=== PATIENT | male | born 1950 | race Hispanic/Latino ===

== ENCOUNTER 2016-11-19 11:50 | Day surgery (SDC) | payer MEDICARE ==
[2016-11-19 12:10] VITALS: BMI 38.0
[2016-11-19] MEDS ORDERED: Lidocaine 2% Inj (20ml) ONE (14:05)
[2016-11-19] MEDS ORDERED: ceFAZolin IV 1 gm in Dextrose 1 GM/50 ML BAG IVPB ONE (14:05)
--- NOTE | 2016-11-19 15:18 | CP.PCM.PN ---
<Fozia Reyes - Last Filed: 11/19/16 15:14> Subjective - Date & Time of Evaluation Date of Evaluation: 11/19/16 Time of Evaluation: 15:14 - Subjective Subjective: PGY-[address] Win Procedure: Implantable Loop Recorder (ILR) Insertion Procedure, goal, risks and benefit discussed with pt. Pt was placed on director of cardiac cath lab. Sterile prep with chlordexadine. Local anesthesia with 2% lidocaine. Small insicion 1.5 inches made to left parasternal rib 3 Pocket is created and injected device Steril strips applied with occulusive pressure dressing Device captured and started recording. Pt tolerated procedure well. Objective - Vital Signs/Intake and Output Vital Signs (last 24 hours): Temp Pulse Resp BP Pulse Ox 98.4 F 78 20 149/72 97 11/19/16 12:27 11/19/16 12:27 11/19/16 12:27 11/19/16 12:27 11/19/16 12:27 <Betsy Win - Last Filed: 11/20/16 08:57> Objective - Vital Signs/Intake and Output Vital Signs (last 24 hours): Temp Pulse Resp BP Pulse Ox 97.3 F L 80 18 135/60 98 11/19/16 15:15 11/19/16 15:15 11/19/16 15:15 11/19/16 15:15 11/19/16 15:15 Attending/Attestation - Attestation I have personally seen and examined this patient.: Yes I have fully participated in the care of the patient.: Yes I have reviewed all pertinent clinical information, including history, physical exam and plan: Yes Notes (Text): 11/20/16 08:55 successful implantation of LOOP recorder follow up with Dr Persaud as outpt
[2016-11-19 15:57] VITALS: BP 135/60; PULSE 80; RESP 18; TEMP 97.3; O2SAT 98
--- NOTE | 2016-11-20 10:46 | OP ---
PROCEDURE DATE: 11/19/2016 PROCEDURE: Tilt table test. INDICATION: Syncope. The patient was brought to the cardiac optical laboratory technician and tilted for 25 minutes, head up tilt. The patient had no hemodynamic events. Only upon laying him flat after 25 minutes, his blood pressure did decre ase to 84/50. He was slightly symptomatic. We will address this as an outpatient. He may need BARRY stockings. Tolerated the procedure well. In the tilt table, he was technically negative after hydra tion, but we will address his symptoms as an outpatient and also follow him up as an outpatient. Suc cessful tilt table test. Betsy Win MD cc: [id number] TT: 11/20/2016 10:45:09 or
--- NOTE | 2016-11-20 11:11 | OP ---
PROCEDURE DATE: 11/19/2016 This is a 66-year-old male who on 11/19/1026 presented to the hospital for implantation of loop recor candace. INDICATION: Syncope, also negative tilt table test. DESCRIPTION OF PROCEDURE: The patient was placed on the table and after appropriate sterile prep and drape, there was a small incision made and the implantable loop recorder was placed in the subcutan eous layer successfully, hemodynamically stable. The patient tolerated the procedure well. He did g et IV antibiotics for an hour before the procedure and there was a sterile dressing placed as well an d we will follow him up as an outpatient in the office with . ____. IMPRESSION: Successful implantation of implantable loop recorder. Betsy Win MD cc: [id number] TT: 11/20/2016 11:11:18 tn
== END 2016-11-19 15:58 | disposition home or self-care (01) ==
LOC: C.CATHLAB 11:50
PROVIDERS: ATTEND Specialist
DX: R55 Syncope and collapse (principal)
CPT/HCPCS: 33282; 93660; C1764; J0690

== ENCOUNTER 2017-02-14 18:57 | Emergency (ER) | payer MEDICARE ==
[2017-02-14 18:58] VITALS: BMI 38.0
[2017-02-14 19:06] VITALS: RESP 16
--- NOTE | 2017-02-14 19:42 | C.PDOC ---
History Of Present Illness 66 year old male presents to the ER with a complaint of an intermittent rectal bleeding since yesterday night. Patient states the bleed occurs periodically and is not associated with a bowel movements. Patient also reports having a painful bump to the rectal area; he denies any prior episodes of the similar symptoms, weakness, chest pain, SOB, or abdominal pain. Time Seen by Provider: 02/14/17 19:09 Chief Complaint (Nursing): GI Problem History Per: Patient History/Exam Limitations: no limitations Onset/Duration Of Symptoms: Days, Intermittent Episodes Current Symptoms Are (Timing): Still Present Number Of Bleeding Episodes: Multiple: Amount of Blood Loss: Small Severity: Mild Quality Of Discomfort: "Pain" Associated Symptoms: Rectal Bleeding, Melena. denies: Diarrhea, Bloody Diarrhea Modifying Factors: None Recent travel outside of the [place]: No Past Medical History Reviewed: Historical Data, Nursing Documentation, Vital Signs Vital Signs: Last Vital Signs Temp 98.2 F 02/14/17 20:37 Pulse 81 02/14/17 20:37 Resp 16 02/14/17 20:37 BP 169/70 H 02/14/17 20:37 Pulse Ox 99 02/14/17 20:37 - Medical History PMH: HTN, Hypercholesterolemia Surgical History: Carotid Endarterectomy (left) - [facility] Procedures EXTIRPATION OF MATTER FROM L INT CAROTID, OPEN APPROACH (02/11/16) SUPPLEMENT L INT CAROTID WITH NONAUT SUB, OPEN APPROACH (02/11/16) Family History: States: No Known Family Hx - Social History Hx Alcohol Use: Yes Hx Substance Use: No - Immunization History Hx Tetanus Toxoid Vaccination: No Hx Influenza Vaccination: No Hx Pneumococcal Vaccination: No Review Of Systems Except As Marked, All Systems Reviewed And Found Negative. Cardiovascular: Negative for: Chest Pain, Palpitations Respiratory: Negative for: Cough, Shortness of Breath Gastrointestinal: Positive for: Rectal Pain, Other (Rectal Bleeding) Physical Exam - Physical Exam Appears: Well, Non-toxic, No Acute Distress Skin: Normal Color, Warm, Dry, No Rash Head: Normacephalic Oral Mucosa: Moist Cardiovascular: Rhythm Regular Respiratory: Normal Breath Sounds, No Rales, No Rhonchi, No Wheezing Gastrointestinal/Abdominal: Normal Exam, Bowel Sounds, Soft, No Tenderness, Other (obese) Rectal: Heme Positive, Hemorrhoids (2cm hemorroid at 3'o clock with area of thrombosis), No Mass, No Other (Fissures) Neurological/Psych: Oriented x3 ED Course And Treatment O2 Sat by Pulse Oximetry: 97 (Room air) Pulse Ox Interpretation: Normal Progress Note: orthodontist vice president was paged, will come see patient at bedside. 8 :10pm- Surgery resident in ER to evaluate patient. 8:25pm- Surgery resident has seen patient, recommends colace, anusol, sitz baths and follow up with Dr. Puentes as outpatient. Patient is in agreement with plan of care, and understands he should return to ED if symptoms worsen. Disposition Counseled Patient/Family Regarding: Diagnosis, Need For Followup, Rx Given - Disposition Referrals: Bryan Puentes Jr., MD [Staff Provider] - Disposition: HOME/ ROUTINE Disposition Time: 20:25 Condition: STABLE Additional Instructions: FOLLOW UP WITH DR PUENTES IN WITHIN 1 WEEK USE MEDICATIONS DIRECTED SITZ BATHS RETURN TO ER IF SYMPTOMS WORSEN Prescriptions: Docusate [Colace] 100 mg PO DAILY #30 cap Hydrocortisone 2.5% (Rectal) [Anusol-HC] 30 applic GA BID #1 tube Instructions: Hemorrhoids (ED), Sitz Bath (GEN) Forms: [employer] (Cymro) Print Language: DUTCH - POA Present On Arrival: None - Clinical Impression Clinical Impression: Hemorrhoids - Scribe Statement The provider has reviewed the documentation as recorded by the Scribe Fadi Garcia All medical record entries made by the Scribe were at my direction and personally dictated by me. I have reviewed the chart and agree that the record accurately reflects my personal performance of the history, physical exam, medical decision making, and the department course for this patient. I have also personally directed, reviewed, and agree with the discharge instructions and disposition.
[2017-02-14 20:38] VITALS: BP 169/70; PULSE 81; TEMP 98.2
[2017-02-19 15:39] VITALS: O2SAT 97
== END 2017-02-14 20:38 | disposition home or self-care (01) ==
LOC: C.ER 18:57
DX: K64.9 Unspecified hemorrhoids (principal)

== ENCOUNTER 2017-08-20 06:19 | Day surgery (SDC) | payer MEDICARE, OTHER ==
[2017-08-20 06:51] VITALS: BMI 40.4
[2017-08-20] MEDS ORDERED: Lidocaine 2% Inj (20ml) ONE (07:09)
[2017-08-20 07:31] LABS: BASO # 0.1 K/uL (0.0-0.2); BASO % 0.9 % (0.0-2.0); EOS # 0.3 K/uL (0.0-0.7); EOS % 4.5 % (0.0-4.0); HEMOGLOBIN 14.2 g/dL (12.0-18.0); LYMPH # 1.8 K/uL (1.0-4.3); LYMPH % 25.5 % (20.0-40.0); MEAN CELL VOLUME 91.9 fL (80.0-94.0); MEAN CORPUSCULAR HEMOGLOBIN 32.1 pg (27.0-31.0); MEAN CORPUSCULAR HGB CONC 34.9 g/dL (33.0-37.0); MONO # 0.5 K/uL (0.0-0.8); MONO % 7.7 % (0.0-10.0); NEUT # 4.2 K/uL (1.8-7.0); NEUT % 61.4 % (50.0-75.0); RBC 4.43 Mil/uL (4.40-5.90); WHITE BLOOD COUNT 6.9 K/uL (4.8-10.8)
[2017-08-20 07:41] LABS: INR 0.9; PROTHROMBIN TIME 10.5 SECONDS (9.7-12.2)
[2017-08-20] MEDS ORDERED: Iodixanol 320 MG/ML 200 ML BOTTLE IV ONE ×2 (08:07→08:59)
[2017-08-20 08:17] LABS: BLOOD UREA NITROGEN 17 mg/dL (9-20); CALCIUM 9.5 mg/dl (8.6-10.4); GFR AFRICAN-AMERICAN > 60; GFR NON-AFRICAN AMERICAN > 60
[2017-08-20] MEDS ORDERED: DiphenhydrAMINE 50 mg/ml Inj ONE (08:26)
[2017-08-20] MEDS ORDERED: ceFAZolin 1 gm FROZEN Premix 2 GM/100 ML ML IVPB ONE (08:42)
--- NOTE | 2017-08-20 09:29 | RAD ---
Chest x-ray two views History: Preoperative evaluation. Comparison: 09/05/2016 Findings: No focal infiltrate or effusion. Right hilar prominence. Left-sided pacemaker. Mild calcification at the aortic knob. Heart size within normal limits. Degenerative changes in the spine and shoulders. Impression: No focal infiltrate or effusion. Right hilar prominence. Left-sided pacemaker. Mild calcification at the aortic knob.
--- NOTE | 2017-08-20 10:16 | PCM.SURG1 ---
Surgeon's Initial Post Op Note - Surgeon's Notes Surgeon: cedric Sand Mill Operator: 0 Type of Anesthesia: IV Sedation Anesthesia Administered By: erendira Pre-Operative Diagnosis: claudication Operative Findings: aortic bifurcation appeared patent. 70% stenosis at distal edge of right ext iliac stent Post-Operative Diagnosis: same Operation Performed: aortofemoral angiogram. selective catherization of right femoral artery. VBX 7x29 stent right ext iliac. post 9mm balloon. perclose left groin Specimen/Specimens Removed: 0 Estimated Blood Loss: EBL {In ML}: 50 Blood Products Given: N/A Drains Used: No Drains Post-Op Condition: Good Date of Surgery/Procedure: 08/20/17 Time of Surgery/Procedure: 10:16
[2017-08-20] MEDS ORDERED: Midazolam 2 MG/2 ML VIAL ONE (11:49)
--- NOTE | 2017-08-20 12:08 | VAS ---
DATE: 08/20/2017 PREOPERATIVE DIAGNOSES: Claudication in both legs. PROCEDURE CARRIED OUT: Aortofemoral angiogram via left groin with selective catheterization of right femoral artery, deployment of VVX covered stent in the right external iliac artery. SURGEON: Bryan Wells Jr., MD FRUIT HARVESTER: None. ANESTHESIOLOGIST: Dr. Larkin. ANESTHESIA: Local sedation. INDICATIONS: The patient is a 67-year-old man with a history of claudication involving the right leg and previously right iliac artery, stents have been placed. He now presents with recurrent claudication. With palpable pulses at rest although somewhat weak. Noninvasive testing and CT angiography suggested disease of the aortic bifurcation with approximately 40% narrowing. A significant drop often in ankle brachial index with exercise 2.48 to 0.48. PROCEDURE AND FINDINGS: The aorta and renal arteries were free of significant occlusive disease. Both the aortic bifurcation and common iliac arteries were widely patent. The internal iliac and external iliac did have some occlusive disease without sedation. The previously placed stent on the right side was widely patent. However, there was approximately 70% stenosis at its distal point. Below this, the profunda femoris, superficial femoral and common femoral artery and popliteal artery trifurcation were widely patent. On the left side, all the vessels were patent down to the trifurcation with visualization of the vessel down to the level of the ankle. Subsequent to the performance of the diagnostic arteriogram, a stiff-angled guidewire was advanced over the aortic bifurcation and a 7-Yi sheath positioned in the distal portion of the common iliac artery inside the previously placed stent. Using the road mapping techniques, a VVX 7-mm stent was then deployed at this location. It was deployed at the end of the stent with good cosmetic results. This was subsequently ballooned with a 9-mm good apposition and results very good cosmetically. The catheter was then removed with the sheath and the catheter was then removed and a Perclose device deployed in left groin. So the basic finding was of 70% stenosis at the distal edge of the right external iliac artery. This was treated with the VVX stent which was ballooned to 9-mm. Bryan Wells Jr., MD cc: Philip Hwang MD
--- NOTE | 2017-08-21 11:58 | CARD ---
APPROVED REPORT EKG Measurement Heart [id number] <Conclusion> Normal sinus rhythm Normal ECG
== END 2017-08-20 14:15 | disposition home or self-care (01) ==
LOC: C.SPRAD 06:19
PROVIDERS: ATTEND Surgery Vascular Surgery
DX: I70.211 Atherosclerosis of native arteries of extremities with intermittent claudication, right leg (principal)
CPT/HCPCS: 36247; 36415; 37221; 71046; 75625; 75716; 75774; 80048; 85025; 85610; 85730; 93005; C1725; C1760; C1766; C1769; C1876; C1894; J0690; J1200; J1644; J2250; J3010; Q9966

== ENCOUNTER 2018-03-04 06:33 | Day surgery (SDC) | payer MEDICARE ==
[2018-03-04] MEDS ORDERED: ceFAZolin 1 gm FROZEN Premix 1 GM/50 ML ML IVPB ONE ×2 (07:03→07:14)
[2018-03-04] MEDS ORDERED: Bupivacaine 0.25% 20 ML INJ IJ ONE (09:32)
[2018-03-04] MEDS ORDERED: Lidocaine 2% MPF (5 ml) Inj ONE (09:32)
[2018-03-04] MEDS ORDERED: Midazolam 2 MG/2 ML VIAL ONE (10:05)
[2018-03-04] MEDS ORDERED: Propofol 10 mg/ml Inj (20 ML) ONE (10:05)
[2018-03-04] MEDS ORDERED: Sodium Chloride 0.9% 1,000 ML IV SCH (10:45)
--- NOTE | 2018-03-04 10:56 | PCM.SURG1 ---
Surgeon's Initial Post Op Note - Surgeon's Notes Surgeon: Dr. Wells Meat Counter Worker: Hari Delaney MS3 Type of Anesthesia: IV Sedation, Local Anesthesia Administered By: Dr. Tyson Pre-Operative Diagnosis: Right hand lesion Operative Findings: Right hand lesion, 1x1cm^2 Post-Operative Diagnosis: Right hand lesion Operation Performed: Excision of right hand lesion Specimen/Specimens Removed: Right hand lesion, [id number] Estimated Blood Loss: EBL {In ML}: 5 Blood Products Given: N/A Drains Used: No Drains Post-Op Condition: Good Date of Surgery/Procedure: 03/04/18 Time of Surgery/Procedure: 10:00
[2018-03-04] MEDS ORDERED: Oxycodone/Acetaminophen 5/325 mg Tab PO PRN (10:58)
[2018-03-04 11:10] VITALS: TEMP 97.6
[2018-03-04 11:33] VITALS: RESP 18
[2018-03-04 11:51] VITALS: BP 115/74; PULSE 73; O2SAT 97
--- NOTE | 2018-03-04 22:02 | OP ---
PROCEDURE DATE: 03/04/2018 PREOPERATIVE DIAGNOSIS: Lesion, right hand pre-thumb region. PROCEDURE CARRIED OUT: Wide local excision. SURGEON: Bryan Wells Jr., MD CORRECTION WORKER: Dr. Gordon ANESTHESIOLOGIST: Dr. Tyson ANESTHESIA: Local sedation. DESCRIPTION OF PROCEDURE: The patient is a middle-aged man with a lesion, which recently developed on just at the beginning of his thumb on the dorsal surface, approximately 2 cm in size. It was excised completely with clean margins using local anesthesia. Antibiotics were given. Skin was standard prepped. After excision, we obtained hemostasis. We did a layer closure raising flaps superiorly and inferiorly and closed the wound. Blood loss during the procedure was 10 mL. Operation carried out was excision of 2 cm lesion of right hand. Bryan Wells Jr., MD
== END 2018-03-04 13:10 | disposition home or self-care (01) ==
LOC: C.SDS 06:33
PROVIDERS: ATTEND Surgery Vascular Surgery
DX: C44.622 Squamous cell carcinoma of skin of right upper limb, including shoulder (principal)
CPT/HCPCS: 11622; 12041; 88305; J0690; J2250; J3010

== ENCOUNTER 2018-03-13 17:18 | Emergency (ER) | payer MEDICARE, MEDICAID ==
[2018-03-13 17:18] VITALS: BMI 35.2
[2018-03-13 17:32] VITALS: TEMP 98.3
[2018-03-13 19:05] LABS: BASO # 0.1 K/uL (0.0-0.2); BASO % 0.5 % (0.0-2.0); EOS # 0.3 K/uL (0.0-0.7); EOS % 2.7 % (0.0-4.0); HEMOGLOBIN 13.1 g/dL (12.0-18.0); LYMPH # 1.7 K/uL (1.0-4.3); LYMPH % 16.7 % (20.0-40.0); MEAN CELL VOLUME 91.1 fL (80.0-94.0); MEAN CORPUSCULAR HEMOGLOBIN 31.5 pg (27.0-31.0); MEAN CORPUSCULAR HGB CONC 34.6 g/dL (33.0-37.0); MEAN PLATELET VOLUME 7.6 fL (7.2-11.7); MONO # 0.7 K/uL (0.0-0.8); MONO % 7.1 % (0.0-10.0); NEUT # 7.5 K/uL (1.8-7.0); NRBC % 0.2 % (0.0-2.0); RBC 4.17 Mil/uL (4.40-5.90); RED CELL DISTRIBUTION WIDTH 13.8 % (11.5-14.5)
[2018-03-13 19:06] LABS: WHITE BLOOD COUNT 10.2 K/uL (4.8-10.8)
[2018-03-13 19:17] LABS: ALB/GLOB RATIO 1.5 (1.0-2.1); ALBUMIN 4.1 g/dL (3.5-5.0); ALT/SGPT 28 U/L (21-72); AST/SGOT 15 U/L (17-59); BLOOD UREA NITROGEN 19 mg/dL (9-20); CALCIUM 9.5 mg/dl (8.6-10.4); GFR NON-AFRICAN AMERICAN > 60
[2018-03-13] MEDS ORDERED: Vancomycin 1 GM 1 GM/250 ML BAG IVPB STA (19:18)
[2018-03-13] MEDS ORDERED: Piperacillin/Tazobact 3.375 gm 100 ML IVPB STA (19:18)
[2018-03-13] MEDS ORDERED: Bacitracin 500 Units/gm Oint Foilpak UD ONE (19:29)
[2018-03-13] MEDS ORDERED: Piperacillin/Tazobact 3.375 gm 100 ML IVPB ONE (19:30)
[2018-03-13] MEDS ORDERED: Oxycodone/Acetaminophen 5/325 mg Tab ONE (19:34)
[2018-03-13] MEDS ORDERED: Vancomycin 1 GM 1 GM/250 ML BAG IVPB ONE (20:07)
--- NOTE | 2018-03-13 20:39 | C.PDOC ---
History Of Present Illness 67 year old male patient presents to the ER with c/o drainage from his surgical site on his right hand. Patient reports he has surgery last week. Patient states his surgical site is warm to touch and he has a questionable fever. Chief Complaint (Nursing): Abnormal Skin Integrity History Per: Patient History/Exam Limitations: no limitations Onset/Duration Of Symptoms: Hrs Current Symptoms Are (Timing): Still Present Location Of Injury: Right: Hand Quality Of Symptoms: Draining Past Medical History Reviewed: Historical Data, Nursing Documentation, Vital Signs Vital Signs: Last Vital Signs Temp 98.3 F 03/13/18 17:28 Pulse 74 03/13/18 21:45 Resp 14 03/13/18 21:45 BP 140/67 03/13/18 21:45 Pulse Ox 100 03/13/18 21:45 - Medical History PMH: Cardia Arrhythmia (PACEMAKER-IMPLANTED 06/19/17), Fractures (LEFT COLLARBONE), HTN, Hypercholesterolemia Surgical History: Carotid Endarterectomy (left), Pacemaker - [facility] Procedures EXTIRPATION OF MATTER FROM L INT CAROTID, OPEN APPROACH (02/11/16) SUPPLEMENT L INT CAROTID WITH NONAUT SUB, OPEN APPROACH (02/11/16) Family History: States: No Known Family Hx - Social History Hx Alcohol Use: Yes Hx Substance Use: No - Immunization History Hx Tetanus Toxoid Vaccination: No Hx Influenza Vaccination: No Hx Pneumococcal Vaccination: No Review Of Systems Except As Marked, All Systems Reviewed And Found Negative. Constitutional: Positive for: Fever (questionable) Skin: Positive for: Other (drainage from surgical site; warm to touch) Physical Exam - Physical Exam Appears: Non-toxic, No Acute Distress Skin: Normal Color, Warm, Dry Head: Atraumatic, Normacephalic Eye(s): bilateral: Normal Inspection Oral Mucosa: Moist Throat: Normal Cardiovascular: Rhythm Regular Respiratory: Normal Breath Sounds Extremity: Other (slightly dehisced surgical hand; +erythema, +warmth; no active drainage) Pulses: Left Brachial: Normal, Right Brachial: Normal Neurological/Psych: Oriented x3, Normal Speech ED Course And Treatment - Laboratory Results Result Diagrams: 03/13/18 19:02 03/13/18 19:02 O2 Sat by Pulse Oximetry: 95 (RA) Pulse Ox Interpretation: Normal - Physician Consult Information Time Consulting Physician Contacted: 18:30 Physician Contacted: Bryan Wells Jr. Outcome Of Conversation: patient will recieve abx and will f/u with him in 1-2 days. Medical Decision Making Medical Decision Making: Impression: drainage on surgical site Plans: -- blood work -- zosyn -- vancomysin -- blood cx Reassess: Patient is resting comfortably. Tolerating PO. Patient is referred to Dr. Wells for f/u in 1-2 days. Disposition - Disposition Referrals: Bryan Wells Jr., MD [Staff Provider] - Disposition: HOME/ ROUTINE Disposition Time: 20:20 Condition: GOOD Additional Instructions: SHELL HERNANDEZ, thank you for letting us take care of you today. Your provider was Yunior Rao DO and you were treated for RT HAND PAIN. The emergency medical care you received today was directed at your acute symptoms. If you were prescribed any medication, please fill it and take as directed. It may take several days for your symptoms to resolve. Return to the Emergency Department if your symptoms worsen, do not improve, or if you have any other problems. Please contact your doctor or call one of the physicians/clinics you have been referred to that are listed on the Patient Visit Information form that is included in your discharge packet. Bring any paperwork you were given at discharge with you along with any medications you are taking to your follow up visit. Our treatment cannot replace ongoing medical care by a primary care provider outside of the emergency department. Thank you for allowing the [email or web address] team to be part of your care today. Follow up with Dr. Wells tomorrow morning for re-evaluation and further management. Prescriptions: Cephalexin [cephalexin] 500 mg PO QID #28 cap Ibuprofen [Motrin] 600 mg PO Q6 PRN #20 tab PRN Reason: Pain, Moderate (4-7) Sulfamethoxazole/Trimethoprim [Bactrim DS 800 mg-160 mg] 1 tab PO BID #14 tab Instructions: Cellulitis (Skin Infection), Adult (DC) Forms: [employer] (Lao) - Clinical Impression Clinical Impression: Cellulitis, Abscess - Scribe Statement The provider has reviewed the documentation as recorded by the Suzy Coronado Do Provider Attestation: All medical record entries made by the Scribe were at my direction and personally dictated by me. I have reviewed the chart and agree that the record accurately reflects my personal performance of the history, physical exam, medical decision making, and the department course for this patient. I have also personally directed, reviewed, and agree with the discharge instructions and disposition.
[2018-03-13 21:46] VITALS: BP 140/67; PULSE 74; RESP 14
[2018-03-13 23:46] VITALS: O2SAT 95
== END 2018-03-13 21:45 | disposition home or self-care (01) ==
LOC: C.ER 17:18
DX: L03.113 Cellulitis of right upper limb (principal); L02.511 Cutaneous abscess of right hand; I10 Essential (primary) hypertension; E78.00 Pure hypercholesterolemia, unspecified
CPT/HCPCS: 80053; 85025; 87040; 96365; 96375; 99283; J2543; J3370

== ENCOUNTER 2018-07-01 09:14 | Outpatient (CLI) | payer MEDICARE, OTHER | END 2018-07-01 09:15 | disposition home or self-care (01) | LOC: C.USIC 09:14 ==

== ENCOUNTER 2018-07-02 10:47 | Outpatient (CLI) | payer MEDICARE, OTHER | END 2018-07-02 10:48 | disposition home or self-care (01) | LOC: C.LAB 10:47 ==

== ENCOUNTER 2018-07-07 08:16 | Outpatient (CLI) | payer MEDICARE, OTHER | END 2018-07-07 08:17 | disposition home or self-care (01) | LOC: C.CTH 08:16 ==

== ENCOUNTER 2018-07-09 09:35 | Outpatient (CLI) | payer MEDICARE, OTHER | END 2018-07-09 09:36 | disposition home or self-care (01) | LOC: C.PAT 09:35 | DX: I65.21 Occlusion and stenosis of right carotid artery (principal) ==

== ENCOUNTER 2018-07-21 06:18 | Inpatient (IN) | payer MEDICARE, OTHER ==
[2018-07-09 09:45] VITALS: BMI 36.3
[2018-07-21] MEDS ORDERED: Lidocaine Hydrochloride 0 ML INJ ONE (07:08)
[2018-07-21] MEDS ORDERED: HEPARIN-NS 5,000 UNITS/500 ML 5,000 UNIT/500 ML BAG IV ONE (07:08)
[2018-07-21] MEDS ORDERED: ceFAZolin 1 gm in NS 2 GM/200 ML BAG IVPB ONE (07:08)
[2018-07-21] MEDS ORDERED: Thrombin Topical 20,000 Intl Units Spray Kit TOP ONE (07:09)
[2018-07-21] MEDS ORDERED: Midazolam 2 MG/2 ML VIAL ONE (07:52)
[2018-07-21] MEDS ORDERED: Propofol 10 mg/ml Inj (20 ML) ONE (07:52)
[2018-07-21] MEDS ORDERED: Succinylcholine Chloride 20 mg/ml Syr (5 ml) IV ONE (07:52)
[2018-07-21] MEDS ORDERED: Phenylephrine 10 mg/ml Inj ONE (08:05)
[2018-07-21] MEDS ORDERED: Neostigmine 1:1000 (1 mg/ml) Inj ONE (10:42)
--- NOTE | 2018-07-21 11:13 | PCM.SURG1 ---
Surgeon's Initial Post Op Note - Surgeon's Notes Surgeon: Priscilla Grain Weigher: PGY4 Type of Anesthesia: General Endo Pre-Operative Diagnosis: R carotid stenosis Operative Findings: large R carotid plaque Post-Operative Diagnosis: R carotid stenosis Operation Performed: Right carotid endarterectomy Specimen/Specimens Removed: R carotid plaque Estimated Blood Loss: EBL {In ML}: 100 Blood Products Given: N/A Drains Used: Idris Post-Op Condition: Good Date of Surgery/Procedure: 07/21/18 Time of Surgery/Procedure: 07:45
[2018-07-21] MEDS ORDERED: Oxycodone/Acetaminophen 5/325 mg Tab PO PRN (11:15)
[2018-07-21] MEDS: HYDROmorphone 0.5 mg/0.5 ml ISec IVP PRN ×2 (11:28→12:00)
--- NOTE | 2018-07-21 12:55 | CP.PCM.CON ---
History of Present Illness - History of Present Illness History of Present Illness: PGY-1 ICU consult note for Dr Prakash Butler Patient is a 68 y/o M with PMHx of HTN, HLD, b/l carotid artery stenosis s/p L carotid endarterectomy who was transferred to ICU from PACU s/p R carotid endarterectomy today. Patient endorses some R sided neck pain but states that it is alleviated with pain medications he's receiving, and denies any chest pain, shortness of breath, abdominal pain, headaches, nausea, or vomiting. During exam, patient is resting comfortably and eating lunch with at bedside. PMHx: HTN, HLD, b/l carotid artery stenosis All: denies PSHx: L carotid endarterectomy Meds: Plavix 75 mg qd, ASA 81 mg qd, amlodipine 10 mg qd, [place]-3 fatty acids 300 mg qd, Losartan-Hctz 100-12.5 mg qd, Motrin 600 mg prn Past Patient History - Past Medical History & Family History Past Medical History?: Yes - Past Social History Smoking Status: Former Smoker - CARDIAC Hx Cardiac Disorders: Yes Hx Cardia Arrhythmia: Yes (PACEMAKER-IMPLANTED 06/19/17) Hx Circulatory Problems: Yes Hx Hypercholesterolemia: Yes Hx Hypertension: Yes Hx Pacemaker: Yes Hx Peripheral Vascular Disease: Yes Other/Comment: CAROTID STENOSIS. PACEMAKER-CHECKED NOVEMBER 2017 - PULMONARY Hx Sleep Apnea: Yes (history of/does not use C-Pap) - NEUROLOGICAL Hx Neurological Disorder: Yes Hx Syncope: Yes (august 2016) - HEENT Hx Cataracts: Yes (bilat IOLI) - RENAL Hx Chronic Kidney Disease: No - ENDOCRINE/METABOLIC Hx Endocrine Disorders: No - HEMATOLOGICAL/ONCOLOGICAL Hx Blood Disorders: Yes Hx Cancer: Yes (SKIN CANCER(BASAL SQUAMOUS)) - INTEGUMENTARY Hx Dermatological Problems: Yes Other/Comment: HX: SKIN CANCER BASAL SGUAMOUS(RIGHT HAND LESION) - MUSCULOSKELETAL/RHEUMATOLOGICAL Hx Musculoskeletal Disorders: Yes Hx Fractures: Yes (LEFT COLLARBONE) - GASTROINTESTINAL Hx Gastrointestinal Disorders: No - GENITOURINARY/GYNECOLOGICAL Hx Genitourinary Disorders: No - PSYCHIATRIC Hx Psychophysiologic Disorder: No Hx Substance Use: No - SURGICAL HISTORY Hx Surgeries: Yes Hx Angiogram: Yes (right lower extremity stenting) Hx Angioplasty: Yes Hx Cataract Extraction: Yes (bilateral) Hx Cardiac Catheterization: Yes Hx Carotid Endarterectomy: Yes (left) Hx Tonsillectomy: Yes Other/Comment: exc lipomas back - ANESTHESIA Hx Anesthesia: Yes Hx Anesthesia Reactions: No Hx Malignant Hyperthermia: No Has any member of the family had a problem w/ anesthesia?: (unknown) Meds Allergies/Adverse Reactions: Allergies Allergy/AdvReac Type Severity Reaction Status Date / Time No Known Allergies Allergy Verified 07/09/18 09:42 - Medications Medications: Current Medications Amlodipine Besylate (Norvasc) 10 mg PO DAILY RUBEN Docusate Sodium (Colace) 100 mg PO BID PRN PRN Reason: Constipation Hydrochlorothiazide (Microzide) 12.5 mg PO DAILY RUBEN Hydromorphone HCl (Dilaudid) 0.5 mg IVP Q10M PRN PRN Reason: Pain, moderate (4-7) Last Admin: 07/21/18 12:00 Dose: 0.5 mg Losartan Potassium (Cozaar) 100 mg PO DAILY RUBEN Oxycodone/Acetaminophen (Percocet 5/325 Mg Tab) 1 tab PO Q4H PRN PRN Reason: Pain, moderate (4-7) Stop: 07/24/18 11:16 Physical Exam - Constitutional Appears: Non-toxic, No Acute Distress - Head Exam Head Exam: ATRAUMATIC - Eye Exam Eye Exam: EOMI, Normal appearance, PERRL - Neck Exam Neck exam: Positive for: Full Rom Additional comments: right dressing in place, c/d/i, DICK drain with small amounts of serosanguinous fluid collected - Respiratory Exam Respiratory Exam: Clear to Auscultation Bilateral, NORMAL BREATHING PATTERN. absent: Accessory Muscle Use, Decreased Breath Sounds, Rales, Rhonchi, Wheezes, Respiratory Distress - Cardiovascular Exam Cardiovascular Exam: REGULAR RHYTHM, +S1, +S2 - GI/Abdominal Exam GI & Abdominal Exam: Distended, Normal Bowel Sounds, Soft. absent: Tenderness - Extremities Exam Extremities exam: Positive for: full ROM, normal inspection. Negative for: pedal edema, tenderness - Back Exam Back exam: NORMAL INSPECTION. absent: tenderness - Neurological Exam Neurological exam: Alert, CN II-XII Intact, Oriented x3 - Psychiatric Exam Psychiatric exam: Normal Affect, Normal Mood - Skin Skin Exam: Dry, Intact, Normal Color, Warm Results - Vital Signs Recent Vital Signs: Last Vital Signs Temp 98 F 07/21/18 11:03 Pulse 109 H 07/21/18 11:03 Resp 12 07/21/18 11:03 BP 142/58 L 07/21/18 11:03 Pulse Ox 95 07/21/18 11:03 Assessment & Plan - Assessment and Plan (Free Text) Assessment: Patient is a 68 year old male with pmhx of HTN, HLD, b/l carotid artery stenosis s/p L carotid endarterectomy, came to hospital today for schedule R carotid endarterectomy today 07/21 for right carotid stenosis/large carotid plaque, no intra op complications, transferred to ICU for monitoring overnight. Plan: Neuro AAOx3 no acute complaints Cardio s/p Rt carotid endarterectomy, EBL intraop 100 ml monitor vitals Q2H Neurovasc check drain management PRN - small amounts of SS fluid observed at encounter hx of HTN - home meds Coozar, Norvasc, HCTZ Am labs - CBC, CMP, Mg Phos PRN pain medications Pulm O2 via NC PRN GI HHD colace Renal Monitor renal function via am labs tomorrow MOnitor I and O PPX DVT: SCDs c/i for post op bleeding GI: not indicated Pain: Dilaudid 0.5 mg PRN, percocet 1 tab PO PRN f Plan discussed with Dr Prakash Gonzalez, PGY-1 - Date & Time Date: 07/21/18 Time: 17:30
--- NOTE | 2018-07-21 21:24 | OP ---
PROCEDURE DATE: 07/21/2018 PREOPERATIVE DIAGNOSIS: Right carotid stenosis, history of previous neurologic event. PROCEDURE CARRIED OUT: Right carotid endarterectomy. SURGEON: Bryan Wells Jr., MD TANK HOUSE OPERATOR: Temo Reeves DO ANESTHESIOLOGIST: Chacha Garcia MD INDICATIONS: The patient is a 68-year-old man with history of previous left carotid endarterectomy, previous iliac artery disease, and presenting with focal neurologic events. Subsequent workup revealed over 90% stenosis of right internal carotid artery. OPERATIVE FINDINGS: Thick ugly ulcerated plaque at the origin of the internal carotid artery. At the end of the procedure, we had a good endpoint. We applied Vascu-Guard patch. We used a Scoma shunt and the patient was neurologically intact. DESCRIPTION OF PROCEDURE: The patient was given general anesthesia, intravenous antibiotics. Venodyne boots were applied initially. We then prepped the neck, gave antibiotics, made an incision, exposing the common internal and external carotid arteries. After exposure of the vessels, heparin was given, the vessels were clamped, the Scoma shunt inserted. We then carried out a standard endarterectomy, the endarterectomy were performed on external carotid artery and the internal was entered through appropriate location. Endpoints were good. We then placed the Vascu-Guard patch, sutured into position and removed the shunt terminated the procedure. Blood loss was 150 mL. The patient awoke neurologically intact. Small tissue drain was left in and attached to suction catheter. Operation carried out is right carotid endarterectomy. Bryan Wells Jr., MD cc: Rachana Persaud MD and Philip Hwang MD
[2018-07-22 06:07] LABS: BASO # 0.1 K/uL (0.0-0.2); BASO % 0.8 % (0.0-2.0); EOS # 0.3 K/uL (0.0-0.7); EOS % 3.7 % (0.0-4.0); HEMOGLOBIN 12.4 g/dL (12.0-18.0); LYMPH # 1.8 K/uL (1.0-4.3); LYMPH % 21.3 % (20.0-40.0); MEAN CELL VOLUME 93.6 fL (80.0-94.0); MEAN CORPUSCULAR HEMOGLOBIN 31.3 pg (27.0-31.0); MEAN CORPUSCULAR HGB CONC 33.4 g/dL (33.0-37.0); MEAN PLATELET VOLUME 7.8 fL (7.2-11.7); MONO # 0.7 K/uL (0.0-0.8); MONO % 8.6 % (0.0-10.0); NEUT # 5.5 K/uL (1.8-7.0); NEUT % 65.6 % (50.0-75.0); NRBC % 0.1 % (0.0-2.0); RBC 3.98 Mil/uL (4.40-5.90); RED CELL DISTRIBUTION WIDTH 13.5 % (11.5-14.5); WHITE BLOOD COUNT 8.4 K/uL (4.8-10.8)
[2018-07-22 06:27] LABS: ALB/GLOB RATIO 1.6 (1.0-2.1); ALBUMIN 4.3 g/dL (3.5-5.0); ALT/SGPT 16 U/L (21-72); AST/SGOT 28 U/L (17-59); BLOOD UREA NITROGEN 14 mg/dL (9-20); CALCIUM 8.7 mg/dl (8.6-10.4); GFR NON-AFRICAN AMERICAN > 60
--- NOTE | 2018-07-22 08:30 | CP.PCM.PN ---
Subjective - Date & Time of Evaluation Date of Evaluation: 07/22/18 Time of Evaluation: 06:55 - Subjective Subjective: Vascular Surgery Pt seen and examined. No new complaints. Doing well post op. No dizziness, headache, weakness, or other neurologic symptoms. Objective - Vital Signs/Intake and Output Vital Signs (last 24 hours): Temp Pulse Resp BP Pulse Ox 98.7 F 76 12 110/37 L 96 07/22/18 08:00 07/22/18 08:00 07/22/18 08:00 07/22/18 07:32 07/22/18 08:00 Intake and Output: 07/22/18 07/22/18 06:59 18:59 Intake Total 0 0 Output Total 1050 0 Balance -1050 0 - Medications Medications: Current Medications Amlodipine Besylate (Norvasc) 10 mg PO DAILY RUBEN Docusate Sodium (Colace) 100 mg PO BID PRN PRN Reason: Constipation Hydrochlorothiazide (Microzide) 12.5 mg PO DAILY RUBEN Hydromorphone HCl (Dilaudid) 0.5 mg IVP Q10M PRN PRN Reason: Pain, moderate (4-7) Last Admin: 07/21/18 12:00 Dose: 0.5 mg Losartan Potassium (Cozaar) 100 mg PO DAILY RUBEN Oxycodone/Acetaminophen (Percocet 5/325 Mg Tab) 1 tab PO Q4H PRN PRN Reason: Pain, moderate (4-7) Stop: 07/24/18 11:16 Pneumococcal Polyvalent Vaccine (Pneumovax 23 Vaccine) 0.5 ml SC .ONCE ONE Stop: 07/22/18 10:01 - Labs Labs: 07/22/18 05:42 07/22/18 05:42 - Constitutional Appears: Non-toxic, No Acute Distress - Head Exam Head Exam: ATRAUMATIC, NORMOCEPHALIC - Eye Exam Eye Exam: EOMI. absent: Scleral icterus - ENT Exam ENT Exam: Mucous Membranes Moist Additional comments: trachea midline - Neck Exam Neck Exam: Tenderness (mild at incision site. ) Additional comments: no erythema, no swelling, drain in place with 90cc/24hr serosanguinous fluid output - Respiratory Exam Respiratory Exam: NORMAL BREATHING PATTERN. absent: Accessory Muscle Use, Respiratory Distress - Cardiovascular Exam Cardiovascular Exam: +S1, +S2. absent: Bradycardia, Tachycardia - GI/Abdominal Exam GI & Abdominal Exam: Soft. absent: Distended, Tenderness - Neurological Exam Neurological Exam: Alert, Awake, Oriented x3 - Skin Skin Exam: Dry, Warm Assessment and Plan - Assessment and Plan (Free Text) Assessment: 68M POD #1 S/P Right carotid endarterectomy Plan: Likely will remove drain today. DC planning Will D/W Dr. Priscilla Reeves PGY4
[2018-07-22] MEDS ORDERED: Pneumococcal 23-Valent Vaccine SC ONE (10:00)
[2018-07-22 16:48] VITALS: BP 107/49; PULSE 82; RESP 12; O2SAT 95
[2018-07-22 16:49] VITALS: TEMP 98
--- NOTE | 2018-07-22 23:32 | CP.PCM.DIS ---
Provider - Provider Date of Admission: 07/21/18 06:18 Attending physician: Bryan Wells Jr, MD Time Spent in preparation of Discharge (in minutes): 45 Hospital Course - Lab Results Lab Results: Micro Results 07/21/18 13:49 Naris MRSA Culture (Admit) - Final MRSA NOT DETECTED Most Recent Lab Values WBC 8.4 K/uL (4.8-10.8) 07/22/18 05:42 RBC 3.98 Mil/uL (4.40-5.90) L 07/22/18 05:42 Hgb 12.4 g/dL (12.0-18.0) 07/22/18 05:42 Hct 37.2 % (35.0-51.0) 07/22/18 05:42 MCV 93.6 fL (80.0-94.0) 07/22/18 05:42 MCH 31.3 pg (27.0-31.0) H 07/22/18 05:42 MCHC 33.4 g/dL (33.0-37.0) 07/22/18 05:42 RDW 13.5 % (11.5-14.5) 07/22/18 05:42 Plt Count 263 K/uL (130-400) 07/22/18 05:42 MPV 7.8 fL (7.2-11.7) 07/22/18 05:42 Neut % (Auto) 65.6 % (50.0-75.0) 07/22/18 05:42 Lymph % (Auto) 21.3 % (20.0-40.0) 07/22/18 05:42 [place]he % (Auto) 8.6 % (0.0-10.0) 07/22/18 05:42 Eos % (Auto) 3.7 % (0.0-4.0) 07/22/18 05:42 Baso % (Auto) 0.8 % (0.0-2.0) 07/22/18 05:42 Neut # (Auto) 5.5 K/uL (1.8-7.0) 07/22/18 05:42 Lymph # (Auto) 1.8 K/uL (1.0-4.3) 07/22/18 05:42 Ashe # (Auto) 0.7 K/uL (0.0-0.8) 07/22/18 05:42 Eos # (Auto) 0.3 K/uL (0.0-0.7) 07/22/18 05:42 Baso # (Auto) 0.1 K/uL (0.0-0.2) 07/22/18 05:42 Sodium 129 mmol/L (132-148) L 07/22/18 05:42 Potassium 4.3 mmol/L (3.6-5.2) 07/22/18 05:42 Chloride 96 mmol/L (98-107) L 07/22/18 05:42 Carbon Dioxide 24 mmol/L (22-30) 07/22/18 05:42 Anion Gap 14 (10-20) 07/22/18 05:42 BUN 14 mg/dL (9-20) 07/22/18 05:42 Creatinine 0.8 mg/dL (0.8-1.5) 07/22/18 05:42 Est GFR ( Amer) > 60 07/22/18 05:42 Est GFR (Non-Af Amer) > 60 07/22/18 05:42 Random Glucose 103 mg/dL (75-110) 07/22/18 05:42 Calcium 8.7 mg/dl (8.6-10.4) 07/22/18 05:42 Phosphorus 4.0 mg/dL (2.5-4.5) 07/22/18 05:42 Magnesium 1.7 mg/dL (1.6-2.3) 07/22/18 05:42 Total Bilirubin 1.1 mg/dL (0.2-1.3) 07/22/18 05:42 AST 28 U/L (17-59) 07/22/18 05:42 ALT 16 U/L (21-72) L D 07/22/18 05:42 Alkaline Phosphatase 43 U/L (38-126) 07/22/18 05:42 Total Protein 7.0 g/dL (6.3-8.3) 07/22/18 05:42 Albumin 4.3 g/dL (3.5-5.0) 07/22/18 05:42 Globulin 2.7 gm/dL (2.2-3.9) 07/22/18 05:42 Albumin/Globulin Ratio 1.6 (1.0-2.1) 07/22/18 05:42 - Hospital Course Hospital Course: 68yo M who came in via SDS for elective R CEA by Dr. Wells on 07/21. Surgery was performed without any acute complications. Idris was left in place. Patient was admitted to the ICU for close neuro monitoring and strict SBP control. Post- operatively patient did very well. POD1 the Idris was removed. Patient tolerated well. Pain well controlled. BP well controlled. Neurologically intact. Patient was cleared for discharge home with close follow up in Dr. Wells's office. Patient understands and agrees with plan. Discharge Exam - Head Exam Head Exam: ATRAUMATIC, NORMAL INSPECTION, NORMOCEPHALIC - Eye Exam Eye Exam: EOMI, Normal appearance. absent: Scleral icterus - ENT Exam ENT Exam: Mucous Membranes Moist - Neck Exam Additional comments: Dressing clean dry and intact. No hematoma noted. No voice changes noted. - Respiratory Exam Respiratory Exam: UNREMARKABLE. absent: Accessory Muscle Use, Respiratory Distress - Cardiovascular Exam Cardiovascular Exam: RRR. absent: JVD - GI/Abdominal Exam GI & Abdominal Exam: Soft. absent: Diminished Bowel Sounds, Distended, Tenderness - Extremities Exam Extremities exam: normal inspection - Neurological Exam Neurological exam: Alert, CN II-XII Intact, Normal Gait, Oriented x3 - Psychiatric Exam Psychiatric exam: Normal Affect, Normal Mood - Skin Skin Exam: Dry, Intact, Normal Color, Warm Discharge Plan - Follow Up Plan Condition: GOOD Disposition: HOME/ ROUTINE Additional Instructions: 1. Patient is cleared for discharge home 2. Follow up with Dr. Wells in 1 week. Call for appointment 3. Okay to shower. Keep dressing clean and dry. Okay to remove dressing in 3 days 4. Use OTC tylenol or Ibuprofen as needed, as directed for pain 5. Return to the ED for any concerning symptoms Referrals: Bryan Wells Jr., MD [Staff Provider] -
== END 2018-07-22 17:00 | disposition home or self-care (01) | DRG 39 ==
LOC: C.9S 06:18 → C.9I 11:26
PROVIDERS: ADMIT Surgery Vascular Surgery; ATTEND Surgery Vascular Surgery
PROC: 03CK0ZZ Extirpation of Matter from Right Internal Carotid Artery, Open Approach (ICD-10-PCS; principal; 2018-07-21 07:45)
DX: I65.21 Occlusion and stenosis of right carotid artery (principal); I73.9 Peripheral vascular disease, unspecified; E78.00 Pure hypercholesterolemia, unspecified; G47.30 Sleep apnea, unspecified; I10 Essential (primary) hypertension; Z87.891 Personal history of nicotine dependence; Z95.0 Presence of cardiac pacemaker